=== PATIENT | female | born 1955 | race Caucasian/White ===

== ENCOUNTER → 2017-11-06 | Outpatient (CLI) | payer OTHER ==
[~2017-11-06] MED LIST: AMIT-106 PO; CALC-1046; CHOL10005 PO; CYCL1DRO6 OP; LIDO700A29 TD; MELO-205 PO; NAPR220C12 PO; OMEG500C5 PO; ORP100 PO; TRAM-420 PO; TURM500C4
--- NOTE | 2017-11-06 10:18 | RADIOLOGY IMAGING REPORT ---
FACILITY: [facility] PATIENT NAME: SRAVANTHI DING : [id number] MR: [id number] V: [id number] EXAM DATE: [id number] ORDERING PHYSICIAN: ERIN HECK TECHNOLOGIST: Jennifer Perez PROCEDURE:BILATERAL DIGITAL SCREENING MAMMOGRAM WITH CAD ASSISTED INTERPRETATION & 3D TOMOSYNTHESIS COMPARISON:Prior mammograms 11/04/16, 03/26/15, 12/28/12, 11/13/11. INDICATIONS:screening FINDINGS: Mildly heterogeneous fibroglandular tissue is seen throughout the breasts. The parenchymal pattern has remained stable allowing for difference in mammographic technique & patient positioning. There is no evidence of malignant appearing mass, malignant appearing calcifications or other secondary sign of malignancy in either breast. DIAGNOSTIC CATEGORY 1--NEGATIVE. RECOMMENDATIONS: ROUTINE MAMMOGRAM AND CLINICAL EVALUATION. IMPRESSION: BIRADS 1: Negative No significant abnormality is seen. Dictated by: Moriah Duran M.D. on 11/06/2017 at 8:47 Transcribed by: ORLANDO on 11/06/2017 at 9:05 Approved by: Moriah Duran M.D. on 11/06/2017 at 10:17 [facility]
== END ==
LOC: MAMO 03:36
PROVIDERS: ATTEND Nurse Practitioner Family
DX: Z12.31 Encounter for screening mammogram for malignant neoplasm of breast (principal)
CPT/HCPCS: 77063; 77067

== ENCOUNTER → 2018-12-16 | Outpatient (CLI) | payer OTHER ==
[~2018-12-16] MED LIST changes: +BENZ28OI2 TOP; +ESTR10TA4 VG
--- NOTE | 2018-12-16 10:04 | RADIOLOGY IMAGING REPORT ---
FACILITY: [facility] - [place] PATIENT NAME: Kyara Monahan : 1955 MR: [id number] V: [id number] EXAM DATE: ORDERING PHYSICIAN: ERIN HECK TECHNOLOGIST: Location: Patient: Kyara Monahan : 1955 Visit/Account:[id number] Date of Sevice: 12/16/2018 DEXA Scan Clinical history: Post menopausal screening. Comparison: DEXA scan from 11/04/2016. LUMBAR SPINE: The bone mineral density (BMD) measured from L1-L4 correlates with a Z-score of 2 and a T-score of 0. 7 which is Normal as defined by the World Health Organization. The corresponding risk of fracture in the lumbar spine is Not increased compared with a young adult reference population. This value has increase by three % since the prior study. More than 5% change is considered significant. HIP: Bone mineral density (BMD) measured in the LEFT total hip region correlates with a Z-score 0.2 and a T-score of -0.8 which is normal as defined by the World Health Organization. The corresponding risk of fracture in the hip is 1-2 t imes increased compared to a young adult reference population. This value has decrease by 2.6 % since the prior study. More than 5% change is considered significant. T score left femoral neck -1.4 Bone mineral density (BMD) measured in the Femoral Neck region measures 0.838 g/cm?. IMPRESSION: 1. Lumbar spine: Normal. There has been 3% increase in the bone mineral density since the previous exam. 2. Left Total Hip: Normal. There has been 2.6% decrease in the bone mineral density since the previ ous exam. 3. Femoral Neck: Bone Mineral Density is 0.838 g/cm? The next DEXA scan of this patient should include the following sites: L1-L4 and the left hip. FRAX? WHO Fracture Risk Assessment Tool link: <http://www.shef.ac.uk/FRAX/tool.jsp?locationValue=9> PLEASE NOTE: 1) The World Health Organization defines low BMD as follows: T-score Normal > -1 Osteopenia < -1 and > -2.5 Osteoporosis < -2.5 without fractures Established osteoporosis < -2.5 with fractures 2) In general, you may wish to consider: Diagnosis Treatment Follow-up DEXA Normal BMD Prevention 2-3 years Osteopenia Prevention/therapy 1-2 years Osteoporosis Therapy Yearly 3) Fracture risk estimated from the T-score is more accurate for vertebral fractures (often spontane ous) than for hip fractures. Report Dictated By: Moriah Duran MD at 12/16/2018 9:58 AM Report E-Signed By: Moriah Duran MD at 12/16/2018 9:59 AM WSN:[id number]
--- NOTE | 2018-12-16 10:27 | RADIOLOGY IMAGING REPORT ---
FACILITY: [facility] - [place] PATIENT NAME: SRAVANTHI DING : [id number] MR: [id number] V: [id number] EXAM DATE: ORDERING PHYSICIAN: ERIN HECK TECHNOLOGIST: Demi Higgins PROCEDURE: BILATERAL DIGITAL SCREENING MAMMOGRAM WITH CAD ASSISTED INTERPRETATION & 3D TOMOSYNTHESIS REASON FOR STUDY: Screening. FAMILY HISTORY OF BREAST CANCER: None. BREAST PROCEDURES/TREATMENTS: None. COMPARISON: 11/06/17, 11/04/16, 03/26/15, 12/28/12. VIEWS OBTAINED: 2D & 3D full field CC & MLO, BREAST DENSITY: The breasts are heterogeneously dense which can obscure small masses. MAMMOGRAM FINDINGS: Most of the parenchymal pattern has remained stable allowing for difference in mammographic technique & patient positioning. There is a focal asymmetry in the lateral portion on the Right CC view in the middle depth best appreciated on Tomographic slice 25 for which Spot compression view is recommended. IMPRESSION: BIRADS 0: Incomplete. Additional views of the Right breast are recommended as described. DIAGNOSTIC CATEGORY 0--INCOMPLETE: NEED ADDITIONAL IMAGING EVALUATION. RECOMMENDATIONS: ADDITIONAL MAMMOGRAPHIC VIEWS REQUIRED: RIGHT BREAST. Dictated by: Moriah Duran M.D. on 12/16/2018 at 8:36 Transcribed by: ORLANDO on 12/16/2018 at 8:50 Approved by: Moriah Duran M.D. on 12/16/2018 at 10:26 [facility]
== END ==
LOC: MAMO 01:11
PROVIDERS: ATTEND Nurse Practitioner Family
DX: Z13.820 Encounter for screening for osteoporosis (principal); Z12.31 Encounter for screening mammogram for malignant neoplasm of breast; Z78.0 Asymptomatic menopausal state; R92.8 Other abnormal and inconclusive findings on diagnostic imaging of breast
CPT/HCPCS: 77063; 77067; 77080

== ENCOUNTER → 2019-01-04 | Outpatient (CLI) | payer OTHER ==
--- NOTE | 2019-01-05 17:00 | RADIOLOGY IMAGING REPORT ---
[place] [facility] [place]IENT NAME: SRAVANTHI DING : [id number] MR: [id number] V: [id number] EXAM DATE: ORDERING PHYSICIAN: ERIN HECK TECHNOLOGIST: Demi Higgins PROCEDURE:RIGHT DIGITAL MAMMOGRAM DIAGNOSTIC WITH CAD ASSISTED INTERPRETATION & 3D TOMOSYNTHESIS REASON FOR STUDY: Further evaluation FAMILY HISTORY OF BREAST CANCER: BREAST PROCEDURES/TREATMENTS: COMPARISON STUDIES: 12/16/18, 11/06/17, 11/04/16, 03/26/15, 12/28/12 MAMMOGRAM VIEWS OBTAINED: 2D & 3D Right CC spot compression view BREAST DENSITY: MAMMOGRAM FINDINGS: The asymmetric density in the lateral portion of the Right breast seen on the recent mammogram appeared compressible & apparently represented a summation shadow. There is no demonstration of malignant appearing mass or calcification of the Right breast. DIAGNOSTIC CATEGORY 2--BENIGN FINDING. RECOMMENDATIONS: ROUTINE MAMMOGRAM AND CLINICAL EVALUATION. IMPRESSION: BIRADS 2: Benign finding Dictated by: Moriah Duarn M.D. on 01/04/2019 at 16:49 Transcribed by: HAYDEE on 01/05/2019 at 14:07 Approved by: Moriah Duran M.D. on 01/05/2019 at 16:57 [facility]
== END ==
LOC: MAMO 01:03
PROVIDERS: ATTEND Nurse Practitioner Family
DX: R92.8 Other abnormal and inconclusive findings on diagnostic imaging of breast (principal)
CPT/HCPCS: 77061; 77065